=== PATIENT | male | born 1995 | race Caucasian/White ===

== ENCOUNTER 2020-01-19 10:10 | Emergency (ER) | payer SELFPAY ==
[~2020-01-19] VITALS: Ht 177.8 cm; Wt 136.3 kg
[2020-01-19 10:41] VITALS: BP 150/87
--- NOTE | 2020-01-19 12:04 | PHYS DOC ---
Past Medical History Past Medical History: Other Additional Past Medical Histor: obesity, "Pre diabetic" Past Surgical History: Other Additional Past Surgical Histo: cleft lip Smoking Status: Current Every Day Smoker Alcohol Use: Rarely Drug Use: None General Adult EDM: Chief Complaint: FOOT INJURY PAIN HPI: HPI: Patient is a 24 year old male with no significant medical history who presents to the ED today with moderate pain to the right foot after a steel beam fell on his right foot at work today. Patient had steel toed shoes on. States the pain is worse on touching the toes. Describes the pain as sharp and constant, denies anything specifically alleviating the pain. Review of Systems: Review of Systems: Constitutional: Denies fever or chills. [] Musculoskeletal: Reports right foot pain. Denies back pain or joint pain. [] Integument: Denies rash. [] Neurologic: Denies headache, focal weakness or sensory changes. [] Psychiatric: Denies depression or anxiety. [] Heart Score: Risk Factors: Risk Factors: DM, Current or recent (<one month) smoker, HTN, HLP, family history of CAD, obesity. Risk Scores: Score 0 - 3: 2.5% MACE over next 6 weeks - Discharge Home Score 4 - 6: 20.3% MACE over next 6 weeks - Admit for Clinical Observation Score 7 - 10: 72.7% MACE over next 6 weeks - Early Invasive Strategies Allergies: Allergies: Allergies Coded Allergies Type Severity Reaction Last Updated Verified No Known Drug Allergies 06/03/13 No Physical Exam: PE: Constitutional: Well developed, well nourished, no acute distress, non-toxic appearance. [] Skin: Warm, dry, no erythema, no rash. [] Back: No tenderness, no CVA tenderness. [] Extremities: Right foot with no obvious deformity. Tenderness on palpation of the toes. Full range of motion to the right foot. +2 right pedal pulse. Cap refill less than 2 seconds the right toes. Neurologic: Alert and oriented X 3, normal motor function, normal sensory function, no focal deficits noted. [] Psychologic: Affect normal, judgement normal, mood normal. [] Current Patient Data: Vital Signs: Vital Signs Date Time Temp Pulse Resp B/P (MAP) Pulse Ox O2 Delivery O2 Flow Rate FiO2 01/19/20 10:41 98.1 89 17 150/87 (108) 96 Room Air 98.1 EKG: EKG: [] Radiology/Procedures: Radiology/Procedures: []PROCEDURE: FOOT RIGHT 3V FOOT RIGHT 3V DATE: 01/19/2020 11:33 AM INDICATION: Reason: pain steel beam fell on him / Spl. Instructions: / History: COMPARISON: None. FINDINGS: Bones: There is no evidence of acute fracture or dislocation. Joints: The joint spaces are normal. Miscellaneous: None. IMPRESSION: No evidence of acute fracture. Electronically signed by: Yeyo Hernandez MD (01/19/2020 12:02 PM) [facility] DICTATED and SIGNED BY: YEYO HERNANDEZ MD DATE: 01/19/20 1202 Course & Med Decision Making: Course & Med Decision Making Pertinent Labs and Imaging studies reviewed. (See chart for details) This is a 24-year-old male patient presenting to the ED today with right foot pain after a steel beam fell on his right foot at work. Right foot x-rays interpreted by radiologist are negative for any acute findings. Discharged home. Ice elevation encouraged. Follow-up with PCP or the orthopedic doctor in 1 to 2 weeks Amee Disclaimer: Amee Disclaimer: This electronic medical record was generated, in whole or in part, using a voice recognition dictation system. Departure Departure Impression: Primary Impression: Contusion of right foot Qualified Codes: S90.31XA - Contusion of right foot, initial encounter Disposition: 01 HOME, SELF-CARE Condition: STABLE Referrals: NO PCP (PCP) SAURAV BALDWIN MD follow up in 1-2 weeks Patient Instructions: Foot Contusion, [id number] Additional Instructions: You were evaluated for right foot contusion, your right foot x-rays are negative for any acute findings. Try to ice and elevate the extremity. Follow-up with orthopedic doctor provided or your own doctor in 1 to 2 weeks. Justicifation of Admission Dx: Justifications for Admission: Justification of Admission Dx: N/A ELEANOR PANIAGUA APRN Jan 19, 2020 12:04
== END 2020-01-19 13:00 | disposition home or self-care (01) ==
LOC: ER 10:10
DX: S90.31XA Contusion of right foot, initial encounter (principal); F17.200 Nicotine dependence, unspecified, uncomplicated; E66.9 Obesity, unspecified; Z68.41 Body mass index [BMI] 40.0-44.9, adult; W20.8XXA Other cause of strike by thrown, projected or falling object, initial encounter; Y93.89 Activity, other specified; Y92.69 Other specified industrial and construction area as the place of occurrence of the external cause; Y99.0 Civilian activity done for income or pay
CPT/HCPCS: 73630; 99283